=== PATIENT | female | born 1985 | race Two or more races ===

== ENCOUNTER 2016-12-06 18:24 | Emergency (ER) | payer MEDICAID ==
[~2016-12-06] VITALS: Ht 167.6 cm; Wt 81.6 kg
[~2016-12-06 18:24] MED LIST: CIPR-217 PO; METF-372 PO
[2016-12-06 19:14] LABS: Basophils # (auto) 0.3 uL; Basophils % (auto) 1.1 % (0.0-2.0); CONDITION Y; Eosinophils # (auto) 0.2 uL; Eosinophils % (auto) 0.9 % (0.0-7.0); Hemoglobin 12.6 g/dL (12.2-16.2); Lymphocytes # (auto) 2.8 uL; Lymphocytes % (auto) 11.6 % (10.0-50.0); Mean Corpuscular Hemoglobin 29.8 pg (28.0-32.0); Mean Corpuscular Hgb Conc. 34.1 g/dL (32.0-36.0); Mean Corpuscular Volume 87.4 fL (80.0-100.0); Mean Platelet Volume 9.4 fL (7.4-10.4); Monocytes # (auto) 1.6 uL; Monocytes % (auto) 6.7 % (0.0-12.0); Neutrophils # (auto) 19.1 uL; Neutrophils % (auto) 79.7 % (37.0-80.0); Platelet Count (auto) 375 10^3/uL (140-450); Red Cell Distribution Width 13.4 % (11.6-16.0)
[2016-12-06 19:36] LABS: Potassium 3.1 mmol/L (3.5-5.1)
[2016-12-06 19:41] LABS: Albumin 3.4 g/dL (3.4-5.0); BUN/Creatinine Ratio 21.6; Calcium 8.8 mg/dL (8.5-10.1)
[2016-12-06 19:43] LABS: Bilirubin, Total 0.4 mg/dL (0.2-1.0); Total Protein 7.7 g/dL (6.4-8.2)
[2016-12-06] MEDS ORDERED: cefTRIAXone 1GM/50ML D5W 50 ML IV ONE (19:45)
[2016-12-06 20:25] LABS: INR 0.95 (0.9-1.15); Partial Thromboplastin Time 23.8 sec (22.64-33.71); Prothrombin Time 10.3 sec (9.37-12.3)
[2016-12-06] MEDS ORDERED: SODIUM CHLORIDE 0.9% 250 ML IV ONE (22:45)
[2016-12-06 23:45] VITALS: BP 114/66
== END 2016-12-06 23:54 | disposition home or self-care (01) ==
LOC: EDBD 18:24 → ER 18:29 → EDUNIT# 18:29 → EDBD 18:29 → ER 23:54
DX: O03.9 Complete or unspecified spontaneous abortion without complication (principal); O24.911 Unspecified diabetes mellitus in pregnancy, first trimester
CPT/HCPCS: 36415; 76801; 76817; 80053; 84702; 85025; 85610; 85730; 86850; 86900; 86901; 87040; 96360; 99285; J0696